=== PATIENT | female | born 1965 | race Caucasian/White ===

== ENCOUNTER → 2024-09-29 11:42 | Outpatient (REF) | payer BC, SELFPAY ==
[2024-09-29 17:57] LABS: ALT (SGPT) 20 U/L (0-35); AST (SGOT) 25 U/L (14-36); Albumin 4.8 g/dl (3.5-5.0); Alkaline Phosphatase 67 U/L (38-126); Blood Urea Nitrogen 20 mg/dl (7-17); Carbon Dioxide 27 mmol/L (22-30); Chloride 102 mmol/L (98-107); Glucose 90 mg/dl (70-99); HDL Cholesterol 84 mg/dl; LDL Cholesterol, Calculated 180 mg/dl; Potassium 4.4 mmol/L (3.5-5.1); Sodium 141 mmol/L (135-145); Total Bilirubin 0.4 mg/dl (0.2-1.3); Total Cholesterol 281 mg/dl (50-199); Total Protein 7.9 g/dl (6.3-8.2); Triglyceride 87 mg/dl (10-149); Very Low Density Lipoprotein 17 mg/dl (0-30); eGFR > 60.00
[2024-09-29 18:27] LABS: TSH 1.52 uIU/ml (0.47-4.68)
== END ==
LOC: CLAB 11:42
PROVIDERS: ATTENDING PHYSICIAN Family Medicine
DX: Z00.00 Encounter for general adult medical examination without abnormal findings (principal); Z68.31 Body mass index [BMI] 31.0-31.9, adult; E78.00 Pure hypercholesterolemia, unspecified; R53.83 Other fatigue
CPT/HCPCS: 80053; 80061; 84443

== ENCOUNTER → 2024-10-22 07:45 | Outpatient (REF) | payer BC, SELFPAY ==
[2024-10-22 09:44] LABS: % Basophils 1.5 % (0-2); % Eosinophils 5.4 % (0-6); % Immature Granulocytes 0.2 % (0-0.5); % Lymphocytes 38.2 % (20.5-51.1); % Monocytes 7.7 % (1.7-9.3); Absolute Basophils 0.1 10^3/uL (0-0.2); Absolute Eosinophils 0.3 10^3/uL (0-0.7); Absolute Lymphocytes 2.1 10^3/uL (1.2-3.4); Absolute Monocytes 0.4 10^3/uL (0.1-0.6); Absolute Neutrophils 2.6 10^3/uL (1.4-6.5); Hematocrit 38.1 % (37.0-47.0); Hemoglobin 13.1 g/dL (12.0-16.0); Mean Corp Hgb Conc. 34.4 g/dL (33.0-37.0); Mean Corpuscular Hgb 29.8 pg (27.0-31.0); Mean Corpuscular Volume 86.6 fL (81.0-99.0); Mean Platelet Volume 10.2 fL (7.4-10.4); Nucleated Red Blood Cells % 0 %; Platelet Count 334 10^3/uL (130-400); Red Cell Dist. Width 12.7 % (11.5-14.5); White Blood Cell Count 5.4 10^3/uL (4.8-10.8)
[2024-10-22 10:02] LABS: Glycohemoglobin (HgbA1c) 5.3 % (4.0-5.6)
[2024-10-22 10:27] LABS: C-Reactive Protein < 5.00 mg/L (0.0-10.00)
[2024-10-24 00:39] LABS: Insulin, Random 10 uIU/mL
== END ==
LOC: HWLAB 07:45
PROVIDERS: ATTENDING PHYSICIAN Nurse Practitioner Family; FAMILY PHYSICIAN Family Medicine
DX: E78.00 Pure hypercholesterolemia, unspecified (principal); R53.83 Other fatigue; R63.5 Abnormal weight gain; Z83.3 Family history of diabetes mellitus
CPT/HCPCS: 36415; 83036; 83525; 85025; 86140